=== PATIENT | female | born 1935 | race Caucasian/White ===

== ENCOUNTER 2018-03-22 11:47 | Day surgery (SDC) | payer OTHER ==
[~2018-03-22] VITALS: Ht 170.2 cm; Wt 66.2 kg
[~2018-03-22 11:47] MED LIST: ATEN25 PO; ATENOLOL; Aspirin EC81 MG PO; CONESTTC VAG; LEVSOD50 PO; LOVASTATIN; MULVITMIND PO; OXYB5 PO
== END 2018-03-22 13:14 | disposition home or self-care (01) ==
LOC: ORSCSDS 11:47
PROVIDERS: Internal Medicine Gastroenterology
PROC: 0DB58ZX Excision of Esophagus, Via Natural or Artificial Opening Endoscopic, Diagnostic (ICD-10-PCS; principal; 2018-03-22 13:15)
PROC: 0DB68ZX Excision of Stomach, Via Natural or Artificial Opening Endoscopic, Diagnostic (ICD-10-PCS; principal; 2018-03-22 13:15)
PROC: 0D758ZZ Dilation of Esophagus, Via Natural or Artificial Opening Endoscopic (ICD-10-PCS; principal; 2018-03-22 13:15)
DX: R13.10 Dysphagia, unspecified (principal); K21.0 Gastro-esophageal reflux disease with esophagitis; I10 Essential (primary) hypertension; E78.5 Hyperlipidemia, unspecified; Z79.82 Long term (current) use of aspirin; Z79.899 Other long term (current) drug therapy
CPT/HCPCS: 88305; 88342; J7120

== ENCOUNTER → 2018-06-13 | Outpatient (CLI) | payer OTHER | END | disposition home or self-care (01) | LOC: PLD 07:49 → LAB SHORT 07:49 | DX: C44.311 Basal cell carcinoma of skin of nose (principal); L57.0 Actinic keratosis; L98.9 Disorder of the skin and subcutaneous tissue, unspecified | CPT/HCPCS: 88305 ==

== ENCOUNTER → 2019-02-22 | Outpatient (CLI) | payer OTHER | END | disposition home or self-care (01) | LOC: PLD 07:46 → LAB SHORT 07:46 | DX: C44.722 Squamous cell carcinoma of skin of right lower limb, including hip (principal) | CPT/HCPCS: 88305 ==